=== PATIENT | female | born 1955 | race Caucasian/White ===

== ENCOUNTER 2018-06-15 10:18 | Inpatient (IN) ==
[2018-06-15] MEDS ORDERED: MORPHINE SULFATE 4 MG/ML SYRG IV ONE (10:27)
[2018-06-15] MEDS ORDERED: ONDANSETRON HCL/PF 2 MG/ML VIAL IV ONE (10:27)
--- NOTE | 2018-06-15 10:32 | ERNOTE ---
Abdominal HPI - General Time Seen by Provider: 06/15/18 10:23 Source: patient Exam Limitations: no limitations - Immun/Allergies/Home Medications Allergies/Adverse Reactions: Allergies aspirin Adverse Reaction (Mild, Verified 06/15/18 11:07) gi upset codeine Adverse Reaction (Mild, Verified 06/15/18 11:07) gi ipset Home Medications: HOME MEDICATIONS albuterol sulfate HFA 90 mcg/actuation aerosol inhaler 2 puff IH Q4H PRN 01/25/18 [Last Taken Unknown] atorvastatin 40 mg tablet 40 mg PO DAILY 01/25/18 [Last Taken Unknown] calcium carbonate 600 mg (1,500 mg)-vitamin D3 400 unit tablet 1 tab PO BID 01/25/18 [Last Taken Unknown] fluticasone 100 mcg-vilanterol 25 mcg/dose powder for inhalation 1 inh IH DAILY 01/25/18 [Last Taken Unknown] ipratropium bromide 0.02 % solution for inhalation 1.25 ml IH Q6H 01/25/18 [Last Taken Unknown] azithromycin 250 mg tablet See Rx Instructions PO .COMPLEX #6 tab 04/28/18 [Last Taken Unknown] levothyroxine 100 mcg capsule 100 mcg PO DAILY #90 cap 05/02/18 [Last Taken Unknown] - History of Present Illness Narrative: Patient states that she woke up this morning with relatively severe epigastric pain and pain in the right upper quadrant. She states she feels as though the pain is actually going into the back, although she has had a cough secondary to her chronic COPD. Timing: constant Quality: moderate, severe Activities at Onset: none Associated Symptoms: Present: nausea, vomiting Prior Abdominal Problems: Present: none Review of Systems - Review of Systems Constitutional: Present: See HPI EYE: Present: no symptoms reported ENT: Present: no symptoms reported Respiratory: Present: See HPI Cardiology: Present: no symptoms reported Gastrointestinal/Abdominal: Present: See HPI Genitourinary: Present: no symptoms reported Musculoskeletal: Present: no symptoms reported Skin: Present: no symptoms reported Neurological: Present: no symptoms reported Endocrine: Present: no symptoms reported Hematologic/Lymphatic: Present: no symptoms reported Psych: Present: no symptoms reported Medical History (Last Reviewed 06/15/18 @ 11:06 by Johnny Herrera RN) Hypothyroidism (Chronic) GERD (gastroesophageal reflux disease) (Chronic) COPD (chronic obstructive pulmonary disease) (Chronic) Carpal tunnel syndrome (Chronic) Surgical History: Surgical History (Last Reviewed 06/15/18 @ 11:06 by Johnny Herrera, DANIELA) H/O adenoidectomy H/O barium enema 2006 redundant sigmoid and transverse colon. 2016 redundant colon. H/O colonoscopy [address] ward- incomplete due to redundant colon followed bybarium enema H/O tubal ligation h/o mg 1988 h/o tonsillectomy Family History: Family History (Last Reviewed 06/15/18 @ 11:06 by Johnny Herrera, DANIELA) Sister Diabetes Back pain Father , dies at age 59 Myocardial infarction Mother , dies at age 79 Cancer COPD (chronic obstructive pulmonary disease) Social History: Preferred Language Dutch (Last Updated 04/28/18 @ 12:43 by Lyn Craft MD) No Social History Section defined Physical Exam - Physical Exam General Appearance: Present: wd/wn, alert, moderate distress, severe distress Head Exam: Present: normal inspection, no evidence of injury Eye Exam: Normal inspection: bilateral, PERRL: bilateral Ears, Nose, Throat: Present: normal ENT inspection, H, normal pharynx Neck: Present: normal inspection, nontender Respiratory: Present: no respiratory distress, no accessory muscle use, chest nontender, lungs clear, decreased breath sounds Cardiovascular/Chest: Present: regular rate, rhythm, no murmur, normal peripheral pulses Gastrointestinal/Abdominal: Present: normal bowel sounds, nondistended, tenderness, guarding, McBurney sign, Hart sign - equivocal Rectal Exam: Present: deferred Back Exam: Present: normal inspection, normal range of motion Extremity Exam: Present: normal inspection, non-tender, no edema, normal range of motion Neurological Exam: Present: alert, oriented, normal mood/affect Skin Exam: Present: normal color, warm/dry Lymphatic Exam: Present: no adenopathy Progress - Results and Orders Patient's Lab Results:: I have reviewed the patient's lab results. - Vital Signs Patient's Vital Signs:: I have reviewed the patient's vital signs. - EKG EKG #1 EKG: NSR EKG read: Reviewed by me - X-Ray X-Ray #1 X-Ray: chest Interpretation: Reviewed by me X-Ray #2 X-Ray: abdomen - CT/Ultrasound CT/Ultrasound Narrative: CT of the abdomen and pelvis reviewed by me Plan - Plan Plan: Patient will be admitted to medical surgical bed with a surgical consult. An NG tube will be placed to low intermittent and she will be held n.p.o. Departure Clinical Impression: SBO (small bowel obstruction) - Departure Disposition: Still a patient Condition: Fair Referrals: Lyn Craft MD [Primary Care Provider] -
[2018-06-15 10:43] LABS: Hematocrit 45.8 % (37.0-47.0); Hemoglobin 14.8 gm/dL (12.5-16.0); Mean Corpuscular Hemoglobin 30.7 pg (27-31); Mean Corpuscular Hgb Conc 32.3 g/dl (32-36); Mean Platelet Volume 10.2 fl (8-12.5); Neutrophil # 6.7 K/mm3 (1.3-6.0); Neutrophil % 74.1 % (42-75.0); Platelet Count 210 K/mm3 (150-450); Red Blood Count 4.82 M/mm3 (4.2-5.4); Red Cell Distribution Width 14.2 % (11.5-14.0); White Blood Count 9.1 K/mm3 (4.0-10.5)
[2018-06-15 10:55] LABS: Prothrombin Time (Patient) 9.3 Seconds (9.0-11.0)
[2018-06-15 10:56] LABS: INR 0.93 INR (0.90-1.10); Partial Thrombolplastin Time 24.7 Seconds (24-32)
[2018-06-15] MEDS ORDERED: diphenhydrAMINE HCL 50 MG/ML VIAL IV ONE (11:09)
[2018-06-15] MEDS ORDERED: METOCLOPRAMIDE HCL 5 MG/ML VIAL IV ONE (11:09)
[2018-06-15] MEDS ORDERED: DIATRIZOATE MEGLUMINE, SODIUM 30 ML BTL PO ONE (11:12)
[2018-06-15] MEDS ORDERED: HYDROmorphone HCL 1 MG/ML DISP.SYRIN IV ONE (11:39)
[2018-06-15 12:04] LABS: ALT 12 U/L (19-67); AST 16 U/L (0-48); Albumin * 3.8 gm/dl (3.4-5.0); Alkaline Phosphatase * 116 U/L (50-170); Anion Gap 16.4 mmol/L (6.8-13.8); BUN/Creatinine Ratio 14.1 (9.0-21.6); Bilirubin, Total 0.2 mg/dL (0.0-1.1); Blood Urea Nitrogen 13 mg/dL (3-23); Ca. Corrected For Albumin 9.8 mg/dL (8.4-10.2); Chloride 104 mmol/L (97-106); Glucose * 132 mg/dL (70-110); Lipase 232 U/L (73-393); Magnesium 2.2 mg/dL (1.2-2.8); Potassium 4.4 mmol/L (3.4-4.6); Sodium 142 mmol/L (132-142); Total Protein 8.2 gm/dL (6.2-8.2); Troponin I Less than 0.017 ng/mL (0.00-0.10)
[2018-06-15 14:12] LABS: Urine Bilirubin Negative (NEGATIVE); Urine Blood Negative /ul (NEGATIVE); Urine Ketone Negative (NEGATIVE); Urine Nitrite Negative (NEGATIVE); Urine Protein Negative (NEGATIVE); Urine Urobilinogen Normal (NORMAL); Urine pH 5.5 pH (5.0-7.0)
[2018-06-15 14:23] LABS: Urine Appearance Clear (CLEAR); Urine Bacteria None Seen; Urine Color Yellow; Urine RBC None Seen /hpf (0-5); Urine WBC TRACE /hpf (0-5)
--- NOTE | 2018-06-15 14:34 | CONS ---
- Reason for consultation (1) SBO (small bowel obstruction) Date of Service: 06/15/18 HPI - General Date of Service: 06/15/18 Narrative: SBO Source: patient Exam Limitations: no limitations - History of Present Illness Initial Comments: Zari is a very pleasant 63-year-old female who woke up with abdominal pain this morning. She was previously feeling well. She came into the emergency room and was evaluated. A CT scan demonstrated a small bowel obstruction. She previously had trouble with constipation, but has been using a stool softener. With her stool softener she does not have any trouble. She denies any rectal bleeding. She had a colonoscopy in 2016 which was incomplete, due to a redundant colon. She underwent a barium enema that was negative. She has never had a small bowel obstruction before. Her previous abdominal surgeries include hysterectomy and a D&C. She is feeling better now than she did when she initially came into the emergency room. Timing/Duration: 4-6 hours Severity: moderate Modifying Factors - (Worsens): Reports: eating Modifying Factors - (Improves): Reports: immobilization Associated Symptoms: denies symptoms Allergies/Adverse Reactions: Allergies aspirin Adverse Reaction (Mild, Verified 06/15/18 11:07) gi upset codeine Adverse Reaction (Mild, Verified 06/15/18 11:07) gi ipset Home Medications: Home Medications Medication Instructions Recorded Last Taken albuterol sulfate HFA 90 2 puff IH Q4H PRN 01/25/18 Unknown mcg/actuation aerosol inhaler atorvastatin 40 mg tablet 40 mg PO DAILY 01/25/18 Unknown calcium carbonate 600 mg (1,500 1 tab PO BID 01/25/18 Unknown mg)-vitamin D3 400 unit tablet fluticasone 100 mcg-vilanterol 25 1 inh IH DAILY 01/25/18 Unknown mcg/dose powder for inhalation ipratropium bromide 0.02 % 1.25 ml IH Q6H PRN 01/25/18 Unknown solution for inhalation levothyroxine 100 mcg capsule 100 mcg PO DAILY #90 cap 05/02/18 Unknown Procedures Colonoscopy (08/23/06) hysterectomy Medications - Medications Current Medications: please see list no blood thinners Review of Systems - Review of Systems Generalized/Overall Review: Present: Malaise EENTM: Present: No Symptoms Reported Respiratory: Present: No Symptoms Reported Cardiac: Present: No Symptoms Reported Abdominal: Present: Abdominal Pain, Constipation Genitourinary: Present: No Symptoms Reported Musculoskeletal: Present: No Symptoms Reported Neurological: Present: No Symptoms Reported Skin: Present: No Symptoms Reported Endocrine: Present: No Symptoms Reported Physical Examination - Exam Vital Signs: Vital Signs - Last Taken Temp 35.8 C L 06/15/18 10:19 Pulse 60 06/15/18 12:15 Resp 15 06/15/18 12:15 BP 190/102 H 06/15/18 12:15 Pulse Ox 97 06/15/18 12:15 O2 Oxygen Delivery Method Room Air Constitutional: Present: Alert, Oriented x3, Cooperative, Well developed ENT Exam: Present: hearing grossly normal Neck: Present: supple, trachea midline Breasts: Present: Exam deferred Respiratory: Present: chest non-tender, normal breath sounds, no respiratory distress, no accessory muscle use Cardiovascular/Chest: Present: regular rate, rhythm Abdomen: Present: Normal bowel sounds, soft, nontender, nondistended. Absent: no rebound tenderness, guarding, rigidity /Rectal: Present: Exam deferred Extremity: Present: normal range of motion Skin Exam: Present: normal color Neurologic: Present: optical fabricator II-XII nml as tested Appearance: Present: appropriate appearance Eye contact: Present: cooperative, good eye contact, normal speech Thoughts: Present: normal thought pattern - Results and Findings: Lab/Microbiology results last 24 hrs: Abnormal/Pending Laboratory Last 24 HRS 06/15/18 06/15/18 06/15/18 14:06 10:40 10:40 RDW 14.2 H Immature Gran % (Auto) 0.70 H Immature Gran # (Auto) 0.06 H Lymphocytes % 15.6 L Neutrophils # 6.7 H Lymphocytes # 1.41 L Plasma Sodium 143 H Anion Gap 16.4 H Random Glucose 132 H ALT 12 L Urine WBC Trace H - Assessments/Findings (1) SBO (small bowel obstruction) Problem: Acute Plan - Plan Plan: NG to LIS conservative management I personally reviewed CT images and see no sign of internal hernia pain is improved, exam is benign, labs re assuring
--- NOTE | 2018-06-15 16:04 | HP ---
Chief Complaint - Chief Complaint Date of Service: 06/15/18 Time of Service: 15:56 Chief Complaint: abdominal pain History of Present Illness: Zari Lewis, is a 63-year-old white female, with past medical history COPD, GERD, hypothyroidism, who was admitted on 06/15/2018 because of abdominal pain. The patient was with her usual self until early this morning when she woke up and experienced severe abdominal pain 10 over 10 starting in her epigastric area and then radiating diffusely. This was associated with several episodes of vomiting of whitish bilious material. She was then brought to the emergency room were a CT scan of her abdomen and pelvis showed small bowel obstruction. She was then admitted. The patient denies any abdominal surgeries. She says her hysterectomy was transvaginal hysterectomy and not a transabdominal hysterectomy. She did have tubal ligation. She did have constipation but has been using stool softeners which has been helping her and has been regular with her bowel movement. She said she last bowel movement was yesterday and was well formed. Her labs were basically stable. She says her pain now is better controlled and she says she has passed gas. Medical History (Last Reviewed 06/15/18 @ 15:29 by Afsaneh Dukes RN) Hypothyroidism (Chronic) GERD (gastroesophageal reflux disease) (Chronic) COPD (chronic obstructive pulmonary disease) (Chronic) Carpal tunnel syndrome (Chronic) Surgical History: Surgical History (Last Reviewed 06/15/18 @ 15:29 by Afsaneh Dukes RN) H/O adenoidectomy H/O barium enema 2007 redundant sigmoid and transverse colon. 2016 redundant colon. H/O colonoscopy [address] ward- incomplete due to redundant colon followed bybarium enema H/O tubal ligation h/o mg 1988 h/o tonsillectomy Family History: Family History (Last Reviewed 06/15/18 @ 15:30 by Afsaneh Dukes RN) Sister Diabetes Back pain Father , dies at age 59 Myocardial infarction Mother , dies at age 79 Cancer COPD (chronic obstructive pulmonary disease) Social History: Patient Lives/Resources Home Utilized Preferred Language Salvadorean Do you have any sikhism or No cultural preference? Smoking Status Former smoker Have you smoked in the past 12 No months Do you dip or chew tobacco No Alcohol Use sober Drug Use none (Last Updated 04/28/18 @ 12:43 by Lyn Craft MD) No Social History Section defined Review Of Systems (GEN) - Review of Systems Generalized/Overall Review: Absent: Chills, Fever EENTM: Absent: Blurred Vision Respiratory: Absent: Cough, Shortness of Breath Cardiac: Absent: Chest Pain, Edema, Palpitations Abdominal: Present: Nausea, Vomiting, Abdominal Pain Genitourinary: Absent: Urgency, Frequency Musculoskeletal: Absent: Joint Pain, Back Pain Neurological: Absent: Headache, Weakness Skin: Absent: Rash, Bruising Endocrine: Absent: Intolerance to Cold, Intolerance to Heat Immunizations: IMMUNIZATION HX Immunizations Up to Date No History of Influenza Vaccine No Hx Pneumococcal Vaccination No Allergies/Adverse Reactions: Allergies Allergy/AdvReac Type Severity Reaction Status Date / Time aspirin AdvReac Mild gi upset Verified 06/15/18 15:30 codeine AdvReac Mild gi ipset Verified 06/15/18 15:30 Home Medications: HOME MEDICATIONS albuterol sulfate HFA 90 mcg/actuation aerosol inhaler 2 puff IH Q4H PRN 01/25/18 [Last Taken Unknown] atorvastatin 40 mg tablet 40 mg PO 3XW 01/25/18 [Last Taken Unknown] calcium carbonate 600 mg (1,500 mg)-vitamin D3 400 unit tablet 1 tab PO BID 01/25/18 [Last Taken Unknown] fluticasone 100 mcg-vilanterol 25 mcg/dose powder for inhalation 1 inh IH DAILY 01/25/18 [Last Taken Unknown] ipratropium bromide 0.02 % solution for inhalation 1.25 ml IH Q6H PRN 01/25/18 [Last Taken Unknown] levothyroxine 100 mcg capsule 100 mcg PO DAILY #90 cap 05/02/18 [Last Taken Unknown] Exam - Exam Vital Signs: Vital Signs - Last Taken Temp 36.6 C 06/15/18 14:45 Pulse 62 06/15/18 14:45 Resp 18 06/15/18 14:45 BP 137/70 06/15/18 14:45 Pulse Ox 97 06/15/18 14:45 Constitutional: Present: Alert, Oriented x3, Cooperative ENT Exam: Present: hearing grossly normal Eye Exam: bilateral eye: normal inspection, PERRL, EOMI Neck: Present: supple Respiratory: Present: decreased breath sounds, No rales, No wheezing Cardiovascular/Chest: Present: regular rate, rhythm, no JVD, no murmur Abdomen: Present: soft, no rebound tenderness, tender - slightly tender epigastric area, other - hyperactive bowel sounds, distended - mildly Extremity: Present: no pedal edema, no calf tenderness Diagnostic Studies: Abnormal Lab Results 06/15/18 06/15/18 06/15/18 Range/Units 10:40 10:40 14:06 RDW 14.2 H (11.5-14.0) % Immature Gran % (Auto) 0.70 H (0.001-0.429) % Immature Gran # (Auto) 0.06 H (0.000-0.0310) K/mm3 Lymphocytes % 15.6 L (20-51) % Neutrophils # 6.7 H (1.3-6.0) K/mm3 Lymphocytes # 1.41 L (1.5-3.5) k/mm3 Plasma Sodium 143 H (130-142) mmol/L Anion Gap 16.4 H (6.8-13.8) mmol/L Random Glucose 132 H (70-110) mg/dL ALT 12 L (19-67) U/L Urine WBC Trace H (0-5) /hpf Laboratory Results WBC 9.1 K/mm3 (4.0-10.5) 06/15/18 10:40 RBC 4.82 M/mm3 (4.2-5.4) 06/15/18 10:40 Hgb 14.8 gm/dL (12.5-16.0) 06/15/18 10:40 Hct 45.8 % (37.0-47.0) 06/15/18 10:40 MCV 95.0 fl (78-100) 06/15/18 10:40 MCH 30.7 pg (27-31) 06/15/18 10:40 MCHC 32.3 g/dl (32-36) 06/15/18 10:40 RDW 14.2 % (11.5-14.0) H 06/15/18 10:40 Plt Count 210 K/mm3 (150-450) 06/15/18 10:40 MPV 10.2 fl (8-12.5) 06/15/18 10:40 Immature Gran % (Auto) 0.70 % (0.001-0.429) H 06/15/18 10:40 Immature Gran # (Auto) 0.06 K/mm3 (0.000-0.0310) H 06/15/18 10:40 Neutrophils % 74.1 % (42-75.0) 06/15/18 10:40 Lymphocytes % 15.6 % (20-51) L 06/15/18 10:40 Monocytes % 7.5 % (0.0-9) 06/15/18 10:40 Eosinophils % 1.2 % (0.0-3.0) 06/15/18 10:40 Basophils % 0.9 % (0.0-1.0) 06/15/18 10:40 Nucleated RBC % 0.0 k/mm3 (0-1) 06/15/18 10:40 Neutrophils # 6.7 K/mm3 (1.3-6.0) H 06/15/18 10:40 Lymphocytes # 1.41 k/mm3 (1.5-3.5) L 06/15/18 10:40 Monocytes # 0.7 k/mm3 (0.0-1.0) 06/15/18 10:40 Eosinophils # 0.1 k/mm3 (0.0-0.7) 06/15/18 10:40 Absolute Basophils 0.1 k/mm3 (0.0-0.1) 06/15/18 10:40 PT 9.3 Seconds (9.0-11.0) 06/15/18 10:40 INR (Anticoag Therapy) 0.93 INR (0.90-1.10) 06/15/18 10:40 PTT ([place]) 24.7 Seconds (24-32) 06/15/18 10:40 D-Dimer 0.48 ug/mL (0.19-0.49) 06/15/18 10:40 Sodium 142 mmol/L (132-142) 06/15/18 10:40 Plasma Sodium 143 mmol/L (130-142) H 06/15/18 10:40 Potassium 4.4 mmol/L (3.4-4.6) 06/15/18 10:40 Chloride 104 mmol/L (97-106) 06/15/18 10:40 Carbon Dioxide 26.0 mmol/L (24-32.6) 06/15/18 10:40 Anion Gap 16.4 mmol/L (6.8-13.8) H 06/15/18 10:40 BUN 13 mg/dL (3-23) 06/15/18 10:40 Creatinine 0.92 mg/dL (0.4-1.4) 06/15/18 10:40 Est GFR (Non-Af Amer) 65 mL/min (60-130) 06/15/18 10:40 BUN/Creatinine Ratio 14.1 (9.0-21.6) 06/15/18 10:40 Random Glucose 132 mg/dL (70-110) H 06/15/18 10:40 Lactic Acid, Venous 1.3 mmol/L (0.4-2.0) 06/15/18 10:36 Calcium 10.0 mg/dL (7.9-10.9) 06/15/18 10:40 Calcium Adj for Albumin 9.8 mg/dL (8.4-10.2) 06/15/18 10:40 Magnesium 2.2 mg/dL (1.2-2.8) 06/15/18 10:40 Total Bilirubin 0.2 mg/dL (0.0-1.1) 06/15/18 10:40 AST 16 U/L (0-48) 06/15/18 10:40 ALT 12 U/L (19-67) L 06/15/18 10:40 Alkaline Phosphatase 116 U/L (50-170) 06/15/18 10:40 Troponin I Less than 0.017 ng/mL (0.00-0.10) 06/15/18 10:40 Total Protein 8.2 gm/dL (6.2-8.2) 06/15/18 10:40 Albumin 3.8 gm/dl (3.4-5.0) 06/15/18 10:40 Lipase 232 U/L (73-393) 06/15/18 10:40 Urine Color Yellow 06/15/18 14:06 Urine Appearance Clear (CLEAR) 06/15/18 14:06 Urine pH 5.5 pH (5.0-7.0) 06/15/18 14:06 Ur Specific [place] 1.010 SP.GR. (1.005-1.010) 06/15/18 14:06 Urine Protein Negative mg/dL (NEGATIVE) 06/15/18 14:06 Urine Glucose (UA) Negative mg/dL (NEGATIVE) 06/15/18 14:06 Urine Ketones Negative mg/dL (NEGATIVE) 06/15/18 14:06 Urine Blood Negative /ul (NEGATIVE) 06/15/18 14:06 Urine Nitrate Negative (NEGATIVE) 06/15/18 14:06 Urine Bilirubin Negative mg/dl (NEGATIVE) 06/15/18 14:06 Urine Urobilinogen Normal EU/dl (NORMAL) 06/15/18 14:06 Ur Leukocyte Esterase Negative /ul (NEGATIVE) 06/15/18 14:06 Urine RBC None seen /hpf (0-5) 06/15/18 14:06 Urine WBC Trace /hpf (0-5) H 06/15/18 14:06 Ur Epithelial Cells 0-5 /hpf (0-5) 06/15/18 14:06 Urine Bacteria None seen (NONE) 06/15/18 14:06 Urine Culture Comments No culture indicated 06/15/18 14:06 Assessment/Plan - Assessment/Plan (1) SBO (small bowel obstruction) Assessment: NPO, NGT to LIS, IVF, pain control. surgery consult. Problem: Acute (2) Hypothyroidism Assessment: will hold medication for now Problem: Chronic Qualifiers: Hypothyroidism type: acquired Qualified Code(s): E03.9 - Hypothyroidism, unspecified (3) GERD (gastroesophageal reflux disease) Assessment: will give IV protonix Problem: Chronic Qualifiers: Esophagitis presence: esophagitis presence not specified Qualified Code(s): K21.9 - Gastro-esophageal reflux disease without esophagitis (4) COPD (chronic obstructive pulmonary disease) Assessment: continue with inhalers Problem: Chronic Qualifiers: COPD type: unspecified COPD Qualified Code(s): J44.9 - Chronic obstructive pulmonary disease, unspecified
[2018-06-15] MEDS ORDERED: IPRATROPIUM BROMIDE 0.5 MG/2.5 ML VIAL.NEB IH PRN (16:20)
[2018-06-15] MEDS ORDERED: ALBUTEROL SULFATE 2.5 MG/0.5 ML VIAL.NEB IH PRN (16:20)
[2018-06-15] MEDS ORDERED: ONDANSETRON HCL/PF 2 MG/ML VIAL IV PRN (16:22)
[2018-06-15] MEDS ORDERED: MORPHINE SULFATE 10 MG/ML SYRG IV PRN (16:23)
[2018-06-15] MEDS: POTASSIUM CHLORIDE 10 MEQ in DEXTROSE 5%-0.5 NORMAL SALINE 995 ML IV SCH (17:09)
[2018-06-15] MEDS: ENOXAPARIN SODIUM 40 MG/0.4 ML SYRG SC SCH (17:10)
[2018-06-15] MEDS: PANTOPRAZOLE SODIUM 40 MG in NORMAL SALINE 100 ML IV SCH (17:10)
[2018-06-16] MEDS ORDERED: PHENOL 180 SPRAY BTL MM PRN (01:26)
[2018-06-16] MEDS: POTASSIUM CHLORIDE 10 MEQ in DEXTROSE 5%-0.5 NORMAL SALINE 995 ML IV SCH ×3 (01:40→18:08)
[2018-06-16 05:36] LABS: Hematocrit 42.5 % (37.0-47.0); Hemoglobin 13.5 gm/dL (12.5-16.0); Mean Cell Volume 94.7 fl (78-100); Mean Corpuscular Hemoglobin 30.1 pg (27-31); Mean Corpuscular Hgb Conc 31.8 g/dl (32-36); Mean Platelet Volume 10.1 fl (8-12.5); Neutrophil # 6.8 K/mm3 (1.3-6.0); Neutrophil % 71.3 % (42-75.0); Platelet Count 212 K/mm3 (150-450); Red Blood Count 4.49 M/mm3 (4.2-5.4); Red Cell Distribution Width 14.5 % (11.5-14.0); White Blood Count 9.5 K/mm3 (4.0-10.5)
[2018-06-16 05:42] LABS: Anion Gap 12.7 mmol/L (6.8-13.8); BUN/Creatinine Ratio 7.1 (9.0-21.6); Calcium * 9.1 mg/dL (7.9-10.9); Potassium 3.7 mmol/L (3.4-4.6)
--- NOTE | 2018-06-16 08:03 | PN ---
Subjective - Date and Time Seen Date: 06/16/18 Time: 08:00 Subjective Narrative: patient has sore throat from her NGT. passing gas. Had loose stool last night and this morning. afebrile. no abdominal today. Objective - Review of Systems Generalized/Overall Review: Denies: Weakness, Chills, Fever Respiratory: Reports: Cough. Denies: Shortness of Breath Cardiac: Denies: Chest Pain, Edema, Palpitations Abdominal: Denies: Nausea, Vomiting, Abdominal Pain Genitourinary Symptoms: Denies: Urgency, Frequency Musculoskeletal Complaints: Denies: Joint Pain, Back Pain Neurological: Denies: Headache Skin: Denies: Rash Endocrine: Denies: Intolerance to Cold, Intolerance to Heat - Vitals Vitals: Last Vital Signs Temp 37.2 C 06/16/18 06:33 Pulse 73 06/16/18 06:33 Resp 14 06/16/18 06:33 BP 125/68 06/16/18 06:33 Pulse Ox 92 L 06/16/18 06:33 - Abnormal Lab Findings Abnormal Lab Findings: Abnormal Lab Results 06/15/18 06/15/18 06/15/18 Range/Units 10:40 10:40 14:06 MCHC (32-36) g/dl RDW 14.2 H (11.5-14.0) % Immature Gran % (Auto) 0.70 H (0.001-0.429) % Immature Gran # (Auto) 0.06 H (0.000-0.0310) K/mm3 Lymphocytes % 15.6 L (20-51) % Neutrophils # 6.7 H (1.3-6.0) K/mm3 Lymphocytes # 1.41 L (1.5-3.5) k/mm3 Plasma Sodium 143 H (130-142) mmol/L Anion Gap 16.4 H (6.8-13.8) mmol/L BUN/Creatinine Ratio (9.0-21.6) Random Glucose 132 H (70-110) mg/dL ALT 12 L (19-67) U/L Urine WBC Trace H (0-5) /hpf 06/16/18 06/16/18 Range/Units 05:20 05:20 MCHC 31.8 L (32-36) g/dl RDW 14.5 H (11.5-14.0) % Immature Gran % (Auto) (0.001-0.429) % Immature Gran # (Auto) (0.000-0.0310) K/mm3 Lymphocytes % 17.5 L (20-51) % Neutrophils # 6.8 H (1.3-6.0) K/mm3 Lymphocytes # (1.5-3.5) k/mm3 Plasma Sodium (130-142) mmol/L Anion Gap (6.8-13.8) mmol/L BUN/Creatinine Ratio 7.1 L (9.0-21.6) Random Glucose 133 H (70-110) mg/dL ALT (19-67) U/L Urine WBC (0-5) /hpf - Exam Constitutional: Present: Alert, Oriented x3, Cooperative ENT Exam: Present: hearing grossly normal Neck: Present: supple Respiratory: Present: decreased breath sounds, No rales, No wheezing Cardiovascular/Chest: Present: regular rate, rhythm, no JVD, no murmur Abdomen: Present: soft, nontender, nondistended, hypoactive Extremity: Present: no pedal edema, no calf tenderness Assessment/Plan - Problems/Diagnosis (1) SBO (small bowel obstruction) Problem: Acute Narrative: will remove NGT. clinically resolving. will follow up AXR. will likely start her on clear liquids if ok with surgery. (2) Hypothyroidism Problem: Chronic Qualifiers: Hypothyroidism type: acquired Qualified Code(s): E03.9 - Hypothyroidism, unspecified (3) GERD (gastroesophageal reflux disease) Problem: Chronic Qualifiers: Esophagitis presence: esophagitis presence not specified Qualified Code(s): K21.9 - Gastro-esophageal reflux disease without esophagitis (4) COPD (chronic obstructive pulmonary disease) Problem: Chronic Qualifiers: COPD type: unspecified COPD Qualified Code(s): J44.9 - Chronic obstructive pulmonary disease, unspecified
[2018-06-16] MEDS: FLUTICASONE PROPION/SALMETEROL 14 PUFF DISK.W.DEV IH SCH ×2 (09:02→21:18)
--- NOTE | 2018-06-16 11:40 | PN ---
Dictated Progress Note - Date and Time Seen: Date: 06/16/18 Time: 11:38 - Progress Note Narrative: Patient is doing well. She denies any pain. She has no nausea or vomiting. She is having flatus and bowel movements. Vital Signs - Last Taken Temp 37.1 C 06/16/18 10:35 Pulse 71 06/16/18 10:35 Resp 18 06/16/18 10:35 BP 141/69 06/16/18 10:35 Pulse Ox 95 06/16/18 10:35 Abnormal/Pending Laboratory Last 24 HRS 06/16/18 06/16/18 06/15/18 05:20 05:20 14:06 MCHC 31.8 L RDW 14.5 H Lymphocytes % 17.5 L Neutrophils # 6.8 H Plasma Sodium Anion Gap BUN/Creatinine Ratio 7.1 L Random Glucose 133 H ALT Urine WBC Trace H 06/15/18 10:40 MCHC RDW Lymphocytes % Neutrophils # Plasma Sodium 143 H Anion Gap 16.4 H BUN/Creatinine Ratio Random Glucose 132 H ALT 12 L Urine WBC NAD RRR CTAB abd soft, non distended Imp: resolved SBO Plan dc NG advance diet surgery will sign off
[2018-06-16] MEDS: ENOXAPARIN SODIUM 40 MG/0.4 ML SYRG SC SCH (17:25)
[2018-06-16] MEDS: PANTOPRAZOLE SODIUM 40 MG in NORMAL SALINE 100 ML IV SCH (17:26)
--- NOTE | 2018-06-17 07:52 | DS ---
(1) SBO (small bowel obstruction) Problem: Resolved (2) Hypothyroidism Problem: Chronic Qualifiers: Hypothyroidism type: acquired Qualified Code(s): E03.9 - Hypothyroidism, unspecified (3) GERD (gastroesophageal reflux disease) Problem: Chronic Qualifiers: Esophagitis presence: esophagitis presence not specified Qualified Code(s): K21.9 - Gastro-esophageal reflux disease without esophagitis (4) COPD (chronic obstructive pulmonary disease) Problem: Chronic Qualifiers: COPD type: unspecified COPD Qualified Code(s): J44.9 - Chronic obstructive pulmonary disease, unspecified Description of Stay: Zari Lewis, is a 63-year-old white female, with past medical history COPD, GERD, hypothyroidism, who was admitted on 06/15/2018 because of abdominal pain. The patient was with her usual self until early on the morning of admission when she woke up and experienced severe abdominal pain , 10 over 10 , starting in her epigastric area and then radiating diffusely. This was associated with several episodes of vomiting of whitish and greenish bilious material. She was then brought to the emergency room were a CT scan of her abdomen and pelvis showed small bowel obstruction. She was then admitted. The patient denies any abdominal surgeries. She says her hysterectomy was transvaginal hysterectomy and not a transabdominal hysterectomy. She did have tubal ligation. She did have constipation but has been using stool softeners which has been helping her and has been regular with her bowel movement. She said the last bowel movement was yesterday and was well formed. Her labs were basically stable. Surgery was consulted. Her abdominal distension and pain resolved . She spontaneously opened up with conservative treatment. Her diet was progressed as tolerated from clear liquid to soft diet to regular diet. She has been having bowel movement with no nausea and vomiting. She is stable to be discharged today. Procedures Performed: none Results and Findings: Pending Mircobiology Results 06/15/18 11:53 Blood Blood Culture - Preliminary NO GROWTH 24 HOURS 06/15/18 10:36 Blood Blood Culture - Preliminary NO GROWTH 24 HOURS Lab Pending Results 06/15/18 10:36: Lactic Acid, Venous 1.3 06/15/18 10:40: WBC 9.1, RBC 4.82, Hgb 14.8, Hct 45.8, MCV 95.0, MCH 30.7, MCHC 32.3, RDW 14.2 H, Plt Count 210, MPV 10.2, Immature Gran % (Auto) 0.70 H, Immature Gran # (Auto) 0.06 H, Neutrophils % 74.1, Lymphocytes % 15.6 L, Monocytes % 7.5, Eosinophils % 1.2, Basophils % 0.9, Nucleated RBC % 0.0, Neutrophils # 6.7 H, Lymphocytes # 1.41 L, Monocytes # 0.7, Eosinophils # 0.1, Absolute Basophils 0.1 06/15/18 10:40: PT 9.3, INR (Anticoag Therapy) 0.93, PTT (Melissa) 24.7 06/15/18 10:40: Sodium 142, Plasma Sodium 143 H, Potassium 4.4, Chloride 104, Carbon Dioxide 26.0, Anion Gap 16.4 H, BUN 13, Creatinine 0.92, Est GFR (Non-Af Amer) 65, BUN/Creatinine Ratio 14.1, Random Glucose 132 H, Calcium 10.0, Calcium Adj for Albumin 9.8, Magnesium 2.2, Total Bilirubin 0.2, AST 16, ALT 12 L, Alkaline Phosphatase 116, Troponin I Less than 0.017, Total Protein 8.2, Albumin 3.8, Lipase 232 06/15/18 10:40: D-Dimer 0.48 06/15/18 14:06: Urine Color Yellow, Urine Appearance Clear, Urine pH 5.5, Ur Specific [place] 1.010, Urine Protein Negative, Urine Glucose (UA) Negative, Urine Ketones Negative, Urine Blood Negative, Urine Nitrate Negative, Urine Bilirubin Negative, Urine Urobilinogen Normal, Ur Leukocyte Esterase Negative, Urine RBC None seen, Urine WBC Trace H, Ur Epithelial Cells 0-5, Urine Bacteria None seen, Urine Culture Comments No culture indicated 06/16/18 05:20: WBC 9.5, RBC 4.49, Hgb 13.5, Hct 42.5, MCV 94.7, MCH 30.1, MCHC 31.8 L, RDW 14.5 H, Plt Count 212, MPV 10.1, Immature Gran % (Auto) 0.20, Immature Gran # (Auto) 0.02, Neutrophils % 71.3, Lymphocytes % 17.5 L, Monocytes % 9.0, Eosinophils % 1.5, Basophils % 0.5, Nucleated RBC % 0.0, Neutrophils # 6.8 H, Lymphocytes # 1.67, Monocytes # 0.9, Eosinophils # 0.1, Absolute Basophils 0.1 06/16/18 05:20: Sodium 140, Plasma Sodium 141, Potassium 3.7, Chloride 105, Carbon Dioxide 26.0, Anion Gap 12.7, BUN 6 D, Creatinine 0.85, Est GFR (Non-Af Amer) 72, BUN/Creatinine Ratio 7.1 L, Random Glucose 133 H, Calcium 9.1 Discharge Location: Home Disposition: Home self-care Condition: Stable Discharge Activity: Activity as tolerated Discharge Diet: General/regular food Referrals: Lyn Craft MD [Primary Care Provider] - Additional Patient Instructions (free text): Follow up with PCP in 2 weeks. Prescriptions (Any new or edited meds): Benzonatate 100 mg PO TID PRN #30 capsule PRN Reason: Cough Complete Home Medications List: Complete Home Medication List: albuterol sulfate HFA 90 mcg/actuation aerosol inhaler 2 puff IH Q4H PRN 01/25/18 atorvastatin 40 mg tablet 40 mg PO 3XW 01/25/18 calcium carbonate 600 mg (1,500 mg)-vitamin D3 400 unit tablet 1 tab PO BID 01/25/18 fluticasone 100 mcg-vilanterol 25 mcg/dose powder for inhalation 1 inh IH DAILY 01/25/18 ipratropium bromide 0.02 % solution for inhalation 1.25 ml IH Q6H PRN 01/25/18 levothyroxine 100 mcg capsule 100 mcg PO DAILY #90 cap 05/02/18 Benzonatate 100 mg PO TID PRN #30 capsule 06/17/18
[2018-06-17 08:56] VITALS: BP 117/59
[2018-06-17] MEDS: FLUTICASONE PROPION/SALMETEROL 14 PUFF DISK.W.DEV IH SCH (18:04)
[2018-06-17] MEDS: POTASSIUM CHLORIDE 10 MEQ in DEXTROSE 5%-0.5 NORMAL SALINE 995 ML IV SCH (18:04)
== END 2018-06-17 09:24 | disposition home or self-care (01) | DRG 390 ==
LOC: ER 10:18 → MS 10:18
PROVIDERS: ADMIT Internal Medicine; ATTEND Internal Medicine
CPT/HCPCS: 36415; 71010; 71020; 71045; 71046; 74019; 74020; 74177; 80048; 80053; 81001; 83605; 83690; 83735; 84484; 85025; 85379; 85610; 85730; 87040; 93005; 96374; 96375; 99285; J2405